=== PATIENT | male | born 1960 | race Caucasian/White ===

== ENCOUNTER 2023-02-10 20:13 | Inpatient (IN) | payer MEDICAID ==
[~2023-02-10] VITALS: Ht 185.4 cm; Wt 104.5 kg
[2023-02-10 21:41] LABS: BASOPHILS % (AUTO) 0.4 % (0-1); EOSINOPHILS # (AUTO) 0.1 X10'3 (0-0.9); EOSINOPHILS % (AUTO) 1.7 % (0-6); HEMATOCRIT 38.5 % (42.0-52.0); HEMOGLOBIN 13.3 g/dl (14.0-17.9); LYMPHOCYTES # (AUTO) 1.2 X10'3 (1.1-4.8); LYMPHOCYTES % (AUTO) 21.1 % (21-51); MEAN CORPUSCULAR HEMOGLOBIN 30.5 PG (27.0-31.0); MEAN CORPUSCULAR HGB CONC 34.7 g/dL (33.0-36.5); MEAN PLATELET VOLUME 10.7 FL (7.4-10.4); MONOCYTES # (AUTO) 0.4 X10'3 (0-0.9); MONOCYTES % (AUTO) 7.6 % (2-12); NEUTROPHILS # (AUTO) 3.9 X10'3 (1.8-7.7); NEUTROPHILS % (AUTO) 69.2 % (42-75); PLATELET COUNT 138 X10'3 (140-440); RED BLOOD COUNT 4.37 X10'6 (4.70-6.10); RED CELL DISTRIBUTION WIDTH 13.7 % (11.5-14.5); WHITE BLOOD COUNT 5.6 X10'3 (4.5-11.0)
[2023-02-10 21:48] LABS: ALANINE AMINOTRANSFERASE 121 U/L (12-78); ALBUMIN/GLOBULIN RATIO 0.7 (1.1-1.5); ALKALINE PHOSPHATASE 175 IU/L (46-116); ANION GAP 6 (8-16); ASPARTATE AMINO TRANSFERASE 70 U/L (10-37); BILIRUBIN,TOTAL 0.3 MG/DL (0.1-1.0); BLOOD UREA NITROGEN 24 MG/DL (7-18); BUN/CREATININE RATIO 21.1 (10.0-20.0); CALCIUM 9.2 MG/DL (8.5-10.1); CHLORIDE 93 MMOL/L (99-107); CREATININE 1.14 MG/DL (0.60-1.10); POTASSIUM 4.4 MMOL/L (3.5-5.1); SODIUM 129 MMOL/L (135-145); TOTAL CARBON DIOXIDE 30.3 MMOL/L (24-32); TOTAL PROTEIN 7.4 G/DL (6.4-8.2); eCRCL 75 ML/MIN; eGFR 65 ML/MIN
[2023-02-10 21:57] LABS: GLUCOSE 592 MG/DL (70-104)
[2023-02-10] MEDS ORDERED: normal saline 1000ML IV soln IVB ONE (22:30)
[2023-02-10] MEDS ORDERED: insulin regular, human 10 units/0.1 ml syringe SQ ONE (23:35)
[2023-02-10] MEDS ORDERED: vancomycin/NS 1 GM ADD-VANTAGE 250 ML IV ONE (23:35)
[2023-02-10] MEDS ORDERED: piperacillin/tazo 4.5gm/100ml 100 ML IV ONE ×2 (23:35→23:51)
[2023-02-10] MEDS ORDERED: ringers solution, lactated 1000ml IV soln IV ONE (23:35)
[2023-02-11 00:06] LABS: APTT 30 SECONDS (22-32)
[2023-02-11 00:08] LABS: C-REACTIVE PROTEIN 2.93 MG/DL (0.0-0.5)
[2023-02-11 00:26] LABS: INR 0.9 INR
[2023-02-11 02:06] LABS: BILIRUBIN,URINE NEGATIVE (Neg); CLARITY,URINE CLEAR (Clear); COLOR,URINE STRAW (Yellow); GLUCOSE, URINE >=1000 mg/dl (Neg); KETONES,URINE NEGATIVE (Neg); LEUKOCYTE ESTERASE ,URINE NEGATIVE (Neg); NITRITES, URINE NEGATIVE (Neg); OCCULT BLOOD,URINE NEGATIVE (Neg); PH,URINE 5.5 (4.8-8.0); PROTEIN,URINE NEGATIVE (Neg); UROBILINOGEN,URINE 0.2 E.U/dL (0.2-1.0)
[2023-02-11] MEDS ORDERED: bisacodyl 10mg suppository rectal RC PRN (02:15)
[2023-02-11] MEDS ORDERED: potassium Cl 20 mEq SR tablet PO PRN ×2 (02:15)
[2023-02-11] MEDS ORDERED: HYDROmorphone/PF 0.2 MG/ML SYRINGE IV PRN (02:15)
[2023-02-11] MEDS ORDERED: MESSAGE TO PHARMACY PO ONE (02:15)
[2023-02-11] MEDS ORDERED: potassium Cl 40MEQ/1/2NS 520ml 520 ML IV PRN (02:15)
[2023-02-11] MEDS ORDERED: HYDROcodone/acetaminophen 5mg/325mg tablet PO PRN (02:15)
[2023-02-11] MEDS ORDERED: albuterol 2.5 MG/3 ML nebule NEB PRN (02:15)
[2023-02-11] MEDS ORDERED: mag hydrox/Alum hydrox/simeth 30ml oral suspension PO PRN (02:15)
[2023-02-11] MEDS ORDERED: DEXTROSE 15 GM of carb/4 tabs (each vial/BOTTLE has 4 tablets) PO PRN ×2 (02:15)
[2023-02-11] MEDS ORDERED: dextrose 50%-water 50ml dispensing syringe IV PRN ×2 (02:15)
[2023-02-11] MEDS ORDERED: acetaminophen 325mg tablet PO PRN ×2 (02:15)
[2023-02-11] MEDS ORDERED: magnesium 4gm in 100ml NS 100 ML IV PRN (02:15)
[2023-02-11] MEDS ORDERED: ondansetron/PF 4mg/2ml inj IV PRN (02:15)
[2023-02-11] MEDS ORDERED: magnesium 2GM in 50ml NS 50 ML IV PRN (02:15)
[2023-02-11] MEDS ORDERED: glucagon, human recombinant 1mg kit SUBCUT PRN (02:15)
[2023-02-11 02:23] LABS: UA COLLECTION TYPE URINAL
[2023-02-11 02:25] LABS: SQUAMOUS EPITHELIAL CELL,UR NONE SEEN /LPF (FEW)
[2023-02-11 02:52] LABS: BACTERIA,URINE FEW /HPF (Neg); RBC,URINE NONE SEEN /HPF (0-2); WBC,URINE NONE SEEN /HPF (0-4)
[2023-02-11 03:44] VITALS: PULSE 78; RESP 16; O2SAT 94
[2023-02-11] MEDS: HYDROcodone/acetaminophen 10/325mg tab PO PRN ×4 (04:48→23:05)
[2023-02-11] MEDS ORDERED: GABA800T11 PO (04:49)
[2023-02-11] MEDS ORDERED: POTA8TAB69 PO (05:23)
[2023-02-11] MEDS ORDERED: INSU100I31 SQ (05:23)
[2023-02-11] MEDS ORDERED: TORS20TA41 PO (05:23)
[2023-02-11] MEDS ORDERED: SPIR25TA5 PO (05:23)
[2023-02-11] MEDS ORDERED: SACU1TAB4 PO (05:23)
[2023-02-11] MEDS ORDERED: DAPA10TA PO (05:23)
[2023-02-11] MEDS ORDERED: DULA1.5P SQ (05:23)
[2023-02-11 07:58] LABS: HEMOGLOBIN A1C > 12.0 % (4.5-6.2)
[2023-02-11] MEDS ORDERED: cefepime 2g/NS 100ml ADVANTAGE 100 ML IV SCH (08:00)
[2023-02-11] MEDS: docusate sod 100mg capsule PO SCH ×2 (08:00→19:59)
[2023-02-11] MEDS: K and/or MAG REPLACEMENT MC SCH ×2 (08:16→20:00)
[2023-02-11 10:34] VITALS: PULSE 48; RESP 16; O2SAT 98
[2023-02-11] MEDS: insulin Lispro (HumaLOG) vial - multi-dose SQ SCH ×3 (10:46→19:42)
[2023-02-11] MEDS: vancomycin/NS 1 GM ADD-VANTAGE 250 ML IV SCH (12:22)
--- NOTE | 2023-02-11 13:13 | NUR ---
MRI form faxed
--- NOTE | 2023-02-11 14:49 | NUR ---
Pt to MRI
[2023-02-11] MEDS ORDERED: GADOTERATE MEGLUMINE 7.5 MMOL/15 ML VIAL IV ONE (15:18)
[2023-02-11] MEDS: HYDROmorphone inj. 0.5 MG/0.5 ML DISP.SYRIN IV PRN ×2 (15:25→19:49)
[2023-02-11] MEDS: CefTRIAXone/D5W-Rocephin 1gm 50 ML IV SCH (16:10)
[2023-02-11] MEDS: metroNIDAZOLE-Flagyl 500mg/NS 100 ML IV SCH ×2 (16:41→23:00)
--- NOTE | 2023-02-11 16:56 | NUR ---
CALLED FOR REPORT NO NURSE ASSINGED.
--- NOTE | 2023-02-11 17:04 | NUR ---
Ortho not answering the phone
--- NOTE | 2023-02-11 17:57 | NUR ---
PATIENT JUST ARRIVED TO THE FLOOR AWAKE AND IN HOSPITAL BED
[2023-02-11 18:00] VITALS: BP 124/70; PULSE 75; RESP 16; TEMP 98.4; O2SAT 100
[2023-02-11 19:00] VITALS: RESP 16; O2SAT 100
[2023-02-11 22:00] VITALS: BP 124/70; PULSE 73; RESP 16; TEMP 97.7; O2SAT 100
[2023-02-11] MEDS: insulin glargine (Lantus) pen - multi-dose SQ SCH (23:08)
[2023-02-11 23:21] VITALS: PULSE 66; RESP 18; O2SAT 99
[2023-02-12] VITALS (8 sets, daily range): BP systolic 107–155; BP diastolic 63–87; PULSE 55–87; RESP 16–20; TEMP 98–98.6; O2SAT 94–100
[2023-02-12] MEDS ORDERED: HYDROmorphone 1 mg/ml syringe ONE (00:54)
[2023-02-12] MEDS: temazepam 15mg capsule PO PRN (00:56)
[2023-02-12] MEDS ORDERED: HYDROmorphone 1 mg/ml syringe IV PRN (01:10)
[2023-02-12] MEDS: vancomycin/NS 1 GM ADD-VANTAGE 250 ML IV SCH ×2 (01:14→13:52)
[2023-02-12] MEDS: HYDROcodone/acetaminophen 10/325mg tab PO PRN ×3 (02:43→21:44)
[2023-02-12 06:07] LABS: BASOPHILS % (AUTO) 0.5 % (0-1); EOSINOPHILS # (AUTO) 0.2 X10'3 (0-0.9); EOSINOPHILS % (AUTO) 3.8 % (0-6); HEMATOCRIT 38.4 % (42.0-52.0); HEMOGLOBIN 13.5 g/dl (14.0-17.9); LYMPHOCYTES # (AUTO) 1.6 X10'3 (1.1-4.8); LYMPHOCYTES % (AUTO) 26.7 % (21-51); MEAN CORPUSCULAR HEMOGLOBIN 30.6 PG (27.0-31.0); MEAN CORPUSCULAR HGB CONC 35.2 g/dL (33.0-36.5); MEAN CORPUSCULAR VOLUME 86.8 FL (78-98); MEAN PLATELET VOLUME 9.7 FL (7.4-10.4); MONOCYTES # (AUTO) 0.4 X10'3 (0-0.9); MONOCYTES % (AUTO) 7.3 % (2-12); NEUTROPHILS # (AUTO) 3.7 X10'3 (1.8-7.7); NEUTROPHILS % (AUTO) 61.7 % (42-75); PLATELET COUNT 127 X10'3 (140-440); RED BLOOD COUNT 4.42 X10'6 (4.70-6.10); RED CELL DISTRIBUTION WIDTH 14.1 % (11.5-14.5)
[2023-02-12 06:24] LABS: ALANINE AMINOTRANSFERASE 107 U/L (12-78); ALBUMIN 2.6 G/DL (3.4-5.0); ALBUMIN/GLOBULIN RATIO 0.7 (1.1-1.5); ALKALINE PHOSPHATASE 90 IU/L (46-116); ANION GAP 6 (8-16); ASPARTATE AMINO TRANSFERASE 71 U/L (10-37); BILIRUBIN,TOTAL 0.3 MG/DL (0.1-1.0); BLOOD UREA NITROGEN 14 MG/DL (7-18); BUN/CREATININE RATIO 16.5 (10.0-20.0); CALCIUM 9.1 MG/DL (8.5-10.1); CHLORIDE 99 MMOL/L (99-107); CREATININE 0.85 MG/DL (0.60-1.10); GLUCOSE 231 MG/DL (70-104); MAGNESIUM 1.7 MG/DL (1.5-2.4); POTASSIUM 3.9 MMOL/L (3.5-5.1); SODIUM 134 MMOL/L (135-145); TOTAL CARBON DIOXIDE 29.4 MMOL/L (24-32); TOTAL PROTEIN 6.5 G/DL (6.4-8.2); eCRCL 101 ML/MIN; eGFR > 90 ML/MIN
--- NOTE | 2023-02-12 06:51 | NUR ---
Patient in room ORTHO 4014. I have received report from Polo and had the opportunity to ask questions and assume patient care.
--- NOTE | 2023-02-12 06:54 | NUR ---
Problems reprioritized. Patient report given, questions answered & plan of care reviewed with MONTSERRAT. Addendum: 02/12/23 at 0654 by Bhavik Franco RN Amended: Links added.
[2023-02-12] MEDS: HYDROmorphone 1 mg/ml syringe IV PRN ×4 (07:00→23:58)
[2023-02-12] MEDS: K and/or MAG REPLACEMENT MC SCH ×2 (07:52→19:44)
[2023-02-12] MEDS: metroNIDAZOLE-Flagyl 500mg/NS 100 ML IV SCH ×3 (07:55→23:54)
[2023-02-12] MEDS: docusate sod 100mg capsule PO SCH ×2 (07:56→19:38)
[2023-02-12] MEDS: insulin Lispro (HumaLOG) vial - multi-dose SQ SCH ×3 (09:23→19:16)
[2023-02-12] MEDS: CefTRIAXone/D5W-Rocephin 1gm 50 ML IV SCH (10:18)
[2023-02-12] MEDS ORDERED: VANCOMYCIN LEVEL IV ONE (11:30)
--- NOTE | 2023-02-12 13:28 | NUR ---
Diabetes consult: Pt admit for right diabetic foot wound-high probability of osteomyelitis, hyponatremia, renal insufficiency, and transaminitis possibly related to alcohol per EMR. Wound care has been consulted, pending [facility] note. Pt presents with an A1c >12% and BG 592mg/dl at admit per EMR. Pt seen at bedside and provided written/verbal diabetes nutrition education. Pt reports sometimes taking his medication "when feeling like complying" and does not see his dr. often for diabetes management. Pt is currently on a carbohydrate controlled diet with average PO intake 100% x 2 meals which met 88% of his estimated kcal needs and 91% of estimated protein needs. During visit noticed pt is edentulous, states he would like soft foods and is agreeable to meat chopped up; notified dietary. RD contact information provided to pt and encouraged to reach out for any nutrition questions or concerns. LBM on 02/10 receiving bowel care per EMR. Will continue to monitor. Recommendations: 1.continue carbohydrate controlled diet 2.Add soft to chew foods and chopped up meats due to pt being edentulous 3.monitor PO intake and need to add double protein 4.routine bowel care 5.weekly scaled wts Addendum: 02/12/23 at [address] Amended: Links added.
--- NOTE | 2023-02-12 14:52 | NUR ---
Received order for consult. Met with patient in regards to substance use and to see if patient was interested in resources for treatment options. Patient would like outpatient resources. I gave patient a list of resources, a card for [facility] and my card to call me with any questions.
--- NOTE | 2023-02-12 15:22 | NUR ---
DIABETIC FOOT CARE EDUCATION PROVIDED BY [facility] * Wash your feet daily with lukewarm water and soap. * Dry your feet well, especially between the toes. * Keep the skin moisturized with lotion, but do not apply it between the toes. * Check your feet for blisters, cuts or sores. * Use an emery board to shape your toenails even with the ends of your toes. * Change daily into clean, soft socks or stockings, not too big or too small. * Keep your feet warm and dry. * Preferably wear special padded socks and shoes that fit well. * Never walk barefoot indoors or outdoors. * Examine your shoes everyday for cracks, margie, nails or anything that could hurt your feet. * Tell your doctor if you find any of these problems or have any concerns after examining your feet. Addendum: 02/12/23 at 1522 by Carmen Gomez LVN Amended: Links added.
--- NOTE | 2023-02-12 18:23 | NUR ---
Problems reprioritized. Patient report given, questions answered & plan of care reviewed with Monica.
--- NOTE | 2023-02-12 18:30 | NUR ---
Patient in room ORTHO 4014. I have received report from MARIAM HUERTA and had the opportunity to ask questions and assume patient care.
[2023-02-12] MEDS: ipratropium/albuterol 3ml nebule NEB PRN (19:50)
[2023-02-12] MEDS: insulin glargine (Lantus) pen - multi-dose SQ SCH (21:40)
[2023-02-13] MEDS: vancomycin/NS 1 GM ADD-VANTAGE 250 ML IV SCH (00:47)
[2023-02-13 06:00] VITALS: BP 149/84; PULSE 73; RESP 18; TEMP 98.9; O2SAT 98
--- NOTE | 2023-02-13 06:26 | NUR ---
Problems reprioritized. Patient report given, questions answered & plan of care reviewed with MARY BETH HUERTA.
--- NOTE | 2023-02-13 06:28 | NUR ---
Patient in room ORTHO 4014. I have received report from BRADLEY Osborn and had the opportunity to ask questions and assume patient care.
[2023-02-13 07:06] LABS: BASOPHILS % (AUTO) 0.4 % (0-1); EOSINOPHILS # (AUTO) 0.2 X10'3 (0-0.9); EOSINOPHILS % (AUTO) 3.2 % (0-6); HEMOGLOBIN 14.5 g/dl (14.0-17.9); LYMPHOCYTES # (AUTO) 1.8 X10'3 (1.1-4.8); LYMPHOCYTES % (AUTO) 28.4 % (21-51); MEAN CORPUSCULAR HEMOGLOBIN 30.3 PG (27.0-31.0); MEAN CORPUSCULAR HGB CONC 34.6 g/dL (33.0-36.5); MEAN CORPUSCULAR VOLUME 87.5 FL (78-98); MEAN PLATELET VOLUME 9.4 FL (7.4-10.4); MONOCYTES # (AUTO) 0.5 X10'3 (0-0.9); MONOCYTES % (AUTO) 7.8 % (2-12); NEUTROPHILS # (AUTO) 3.9 X10'3 (1.8-7.7); NEUTROPHILS % (AUTO) 60.2 % (42-75); PLATELET COUNT 159 X10'3 (140-440); RED BLOOD COUNT 4.79 X10'6 (4.70-6.10); RED CELL DISTRIBUTION WIDTH 13.8 % (11.5-14.5); WHITE BLOOD COUNT 6.4 X10'3 (4.5-11.0)
[2023-02-13] MEDS: HYDROmorphone 1 mg/ml syringe IV PRN ×4 (07:14→20:53)
[2023-02-13 07:17] LABS: ALANINE AMINOTRANSFERASE 109 U/L (12-78); ALBUMIN 2.9 G/DL (3.4-5.0); ALBUMIN/GLOBULIN RATIO 0.7 (1.1-1.5); ALKALINE PHOSPHATASE 103 IU/L (46-116); ANION GAP 8 (8-16); ASPARTATE AMINO TRANSFERASE 71 U/L (10-37); BILIRUBIN,TOTAL 0.3 MG/DL (0.1-1.0); BLOOD UREA NITROGEN 13 MG/DL (7-18); BUN/CREATININE RATIO 14.6 (10.0-20.0); CALCIUM 9.5 MG/DL (8.5-10.1); CHLORIDE 99 MMOL/L (99-107); CREATININE 0.89 MG/DL (0.60-1.10); GLUCOSE 238 MG/DL (70-104); MAGNESIUM 1.7 MG/DL (1.5-2.4); POTASSIUM 4.1 MMOL/L (3.5-5.1); SODIUM 133 MMOL/L (135-145); TOTAL CARBON DIOXIDE 25.9 MMOL/L (24-32); TOTAL PROTEIN 7.3 G/DL (6.4-8.2); eCRCL 96 ML/MIN; eGFR 86 ML/MIN
[2023-02-13] MEDS: docusate sod 100mg capsule PO SCH ×2 (07:19→20:00)
[2023-02-13] MEDS: metroNIDAZOLE-Flagyl 500mg/NS 100 ML IV SCH ×2 (07:22→16:08)
[2023-02-13] MEDS: K and/or MAG REPLACEMENT MC SCH ×2 (08:00→20:00)
[2023-02-13] MEDS: HYDROcodone/acetaminophen 10/325mg tab PO PRN ×2 (09:26→14:09)
[2023-02-13] MEDS: CefTRIAXone/D5W-Rocephin 1gm 50 ML IV SCH (09:26)
[2023-02-13 10:00] VITALS: BP 156/78; PULSE 73; RESP 16; TEMP 98.9; O2SAT 98
[2023-02-13] MEDS: insulin Lispro (HumaLOG) vial - multi-dose SQ SCH ×3 (10:00→18:49)
[2023-02-13] MEDS: VANCOMYCIN 1,500MG in NS 300ml IVPB IV SCH ×2 (11:32→22:17)
--- NOTE | 2023-02-13 15:41 | NUR ---
F/u 02/13: Per [facility] note, pt w/ R 2nd toe DM foot ulcer no depth. Will monitor for nutrition intervention needs this admit. Addendum: 02/13/23 at [address] Amended: Links added.
[2023-02-13] MEDS ORDERED: iohexol 350 MG/ML 50ML vial IV ONE (16:19)
[2023-02-13] MEDS ORDERED: iohexol 350MG/ML 100ml bottle IV ONE (16:20)
[2023-02-13 16:59] VITALS: PULSE 73; RESP 18; O2SAT 96
[2023-02-13 18:00] VITALS: BP 126/69; PULSE 74; RESP 20; TEMP 98; O2SAT 97
--- NOTE | 2023-02-13 18:00 | NUR ---
Patient in room ORTHO 4014. I have received report from BRADLEY Byrne and had the opportunity to ask questions and assume patient care.
--- NOTE | 2023-02-13 19:09 | NUR ---
Problems reprioritized. Patient report given, questions answered & plan of care reviewed with BRADLEY Arambula.
[2023-02-13 19:32] VITALS: PULSE 78; RESP 16; O2SAT 98
[2023-02-13] MEDS: insulin glargine (Lantus) pen - multi-dose SQ SCH (20:47)
[2023-02-13 22:00] VITALS: BP 155/96; PULSE 70; RESP 16; TEMP 97.9; O2SAT 100
[2023-02-14] VITALS (21 sets, daily range): BP systolic 103–167; BP diastolic 63–103; PULSE 69–89; RESP 8–21; TEMP 98–98.4; O2SAT 94–100
[2023-02-14] MEDS: metroNIDAZOLE-Flagyl 500mg/NS 100 ML IV SCH ×2 (00:19→07:08)
[2023-02-14] MEDS: HYDROmorphone 1 mg/ml syringe IV PRN ×3 (02:11→12:16)
--- NOTE | 2023-02-14 06:20 | NUR ---
Problems reprioritized. Patient report given, questions answered & plan of care reviewed with BRADLEY Byrne.
--- NOTE | 2023-02-14 06:37 | NUR ---
Patient in room ORTHO 4014. I have received report from BRADLEY Arambula and had the opportunity to ask questions and assume patient care.
[2023-02-14 06:57] LABS: BASOPHILS # (AUTO) 0.1 X10'3 (0-0.2); BASOPHILS % (AUTO) 0.8 % (0-1); EOSINOPHILS # (AUTO) 0.2 X10'3 (0-0.9); EOSINOPHILS % (AUTO) 2.4 % (0-6); HEMATOCRIT 42.5 % (42.0-52.0); HEMOGLOBIN 14.8 g/dl (14.0-17.9); LYMPHOCYTES # (AUTO) 1.8 X10'3 (1.1-4.8); LYMPHOCYTES % (AUTO) 26.4 % (21-51); MEAN CORPUSCULAR HEMOGLOBIN 30.3 PG (27.0-31.0); MEAN CORPUSCULAR HGB CONC 34.7 g/dL (33.0-36.5); MEAN CORPUSCULAR VOLUME 87.1 FL (78-98); MONOCYTES # (AUTO) 0.4 X10'3 (0-0.9); MONOCYTES % (AUTO) 5.8 % (2-12); NEUTROPHILS # (AUTO) 4.3 X10'3 (1.8-7.7); NEUTROPHILS % (AUTO) 64.6 % (42-75); PLATELET COUNT 164 X10'3 (140-440); RED BLOOD COUNT 4.88 X10'6 (4.70-6.10); WHITE BLOOD COUNT 6.7 X10'3 (4.5-11.0)
[2023-02-14] MEDS: docusate sod 100mg capsule PO SCH ×2 (07:06→19:31)
[2023-02-14 07:48] LABS: ALANINE AMINOTRANSFERASE 128 U/L (12-78); ALBUMIN 2.9 G/DL (3.4-5.0); ALBUMIN/GLOBULIN RATIO 0.6 (1.1-1.5); ALKALINE PHOSPHATASE 93 IU/L (46-116); ANION GAP 9 (8-16); ASPARTATE AMINO TRANSFERASE 95 U/L (10-37); BILIRUBIN,TOTAL 0.4 MG/DL (0.1-1.0); BLOOD UREA NITROGEN 14 MG/DL (7-18); BUN/CREATININE RATIO 19.7 (10.0-20.0); CALCIUM 9.7 MG/DL (8.5-10.1); CHLORIDE 100 MMOL/L (99-107); CREATININE 0.71 MG/DL (0.60-1.10); GLUCOSE 149 MG/DL (70-104); MAGNESIUM 1.7 MG/DL (1.5-2.4); POTASSIUM 4.2 MMOL/L (3.5-5.1); SODIUM 134 MMOL/L (135-145); TOTAL CARBON DIOXIDE 24.7 MMOL/L (24-32); TOTAL PROTEIN 7.4 G/DL (6.4-8.2); eCRCL 120 ML/MIN; eGFR > 90 ML/MIN
[2023-02-14] MEDS: CefTRIAXone/D5W-Rocephin 1gm 50 ML IV SCH (09:22)
[2023-02-14] MEDS: HYDROcodone/acetaminophen 10/325mg tab PO PRN ×3 (09:22→19:36)
[2023-02-14] MEDS ORDERED: potassium chloride 8mEq ER tablet PO ONE (09:32)
[2023-02-14] MEDS ORDERED: spironolactone 25 MG tablet PO ONE (09:32)
--- NOTE | 2023-02-14 12:25 | NUR ---
WOC NOTE: Patient is having surgery today per primary nurse. WOC will see pt later in the week to evaluate surgical site.
[2023-02-14] MEDS: VANCOMYCIN 1,500MG in NS 300ml IVPB IV SCH ×2 (12:27→12:47)
[2023-02-14] MEDS: gabapentin 400mg capsule PO SCH ×2 (12:28→21:24)
[2023-02-14] MEDS ORDERED: morphine 4 MG/ML inj SYRINge IV PRN (13:50)
[2023-02-14] MEDS ORDERED: enalaprilat dihydrate 2.5mg/2ml vial IV PRN (13:50)
[2023-02-14] MEDS ORDERED: ondansetron/PF 4mg/2ml inj IV PRN (13:50)
[2023-02-14] MEDS ORDERED: morphine 2 MG/ML inj. syringe IV PRN (13:50)
[2023-02-14] MEDS ORDERED: fentaNYL/PF 50MCG/1 ML 2ML syringe IV PRN ×2 (13:50)
[2023-02-14] MEDS ORDERED: ringers solution, lacted 1,000 ML IV SCH (13:50)
[2023-02-14] MEDS ORDERED: BUPIVAcaine/PF 2.5 mg/ml (0.25%) 30ml vial ONE (14:56)
[2023-02-14] MEDS ORDERED: fentaNYL/PF 50MCG/1 ML 2ML syringe ONE (16:18)
[2023-02-14] MEDS ORDERED: desflurane 240ml liquid inh. IH ONE (16:18)
[2023-02-14] MEDS ORDERED: propofol inj 20 ML IV ONE (16:19)
[2023-02-14] MEDS ORDERED: midazolam 1 mg/ML 2ml injection ONE (16:19)
[2023-02-14] MEDS ORDERED: ondansetron/PF 4mg/2ml inj ONE (16:19)
[2023-02-14] MEDS ORDERED: LIDOcaine 2% (20mg/ml) 5ml vial ONE (16:19)
[2023-02-14] MEDS ORDERED: vancomycin 1,000mg inj ONE (16:39)
--- NOTE | 2023-02-14 16:54 | NUR ---
Received from OR via HOSPITAL BED TO RR 7, accompanied by Anesthesiologist DR REHMAN and report given by Anesthesiolgist. PT PRESENT WITH ORAL AIRWAY ON 8L VIA MASK, SPO2 AT 100%. NO S/S OF DISTRESS NOTED, VSS. RIGHT FOOT DRESSING CDI AND BED ELEVATED TO HELP REDUCE SWELLING IN RLE. SCD APPLIED TO LEFT LEG. WILL CONTINUE TO ASSESS.
--- NOTE | 2023-02-14 18:15 | NUR ---
Problems reprioritized. Patient report given, questions answered & plan of care reviewed with BRADLEY Callaway.
--- NOTE | 2023-02-14 18:25 | NUR ---
Patient in room ORTHO 4014. I have received report from BRADLEY Byrne and had the opportunity to ask questions and assume patient care.
--- NOTE | 2023-02-14 18:25 | NUR ---
Patient in room ORTHO 4014. I have received report from BRADLEY Byrne and had the opportunity to ask questions and assume patient care.
[2023-02-14] MEDS: hydrALAZINE 20mg/ml inj. IV PRN ×2 (18:42→19:01)
--- NOTE | 2023-02-14 18:50 | NUR ---
Patient in room ORTHO 4014. I have received report from BRADLEY Long and had the opportunity to ask questions and assume patient care.
--- NOTE | 2023-02-14 19:20 | NUR ---
pt arrived to the floor in hospital bed. settled in. call light in reach.
--- NOTE | 2023-02-14 19:24 | NUR ---
PATIENT STABLE FOR TRANSFER PER MD ORDERS. REPORT CALLED TO MARIANGEL GONZALEZ NURSE, ALL QUESTIONS, COMMENTS AND CONCERNS WERE ANSWERED AT THIS TIME. RIGHT FOOT DRESSING CDI. PATIENT HOOKED UP TO POST OP VS, CALL LIGHT IN HAND, BLL. PRIMARY NURSE AWARE OF PATIENT IN ROOM.
[2023-02-14] MEDS: metroNIDAZOLE 500mg tablet PO SCH ×2 (19:31→23:58)
[2023-02-14] MEDS: K and/or MAG REPLACEMENT MC SCH (20:00)
[2023-02-14] MEDS ORDERED: Sacubitril/Valsartan (Entresto 97 mg-103 mg Tablet) PO SCH (20:00)
[2023-02-14] MEDS: insulin Lispro (HumaLOG) vial - multi-dose SQ SCH (21:40)
[2023-02-14] MEDS: insulin glargine (Lantus) pen - multi-dose SQ SCH (21:42)
[2023-02-14] MEDS ORDERED: VANCOMYCIN LEVEL IV ONE (22:30)
[2023-02-15] VITALS (9 sets, daily range): BP systolic 114–138; BP diastolic 63–80; PULSE 81–90; RESP 14–18; TEMP 97.4–98.4; O2SAT 94–98
--- NOTE | 2023-02-15 06:15 | NUR ---
Problems reprioritized. Patient report given, questions answered & plan of care reviewed with BRADLEY Byrne.
[2023-02-15 06:21] LABS: MEAN PLATELET VOLUME 8.9 FL (7.4-10.4)
[2023-02-15 06:24] LABS: BASOPHILS # (AUTO) 0.1 X10'3 (0-0.2); BASOPHILS % (AUTO) 1.1 % (0-1); EOSINOPHILS # (AUTO) 0.2 X10'3 (0-0.9); EOSINOPHILS % (AUTO) 2.8 % (0-6); LYMPHOCYTES # (AUTO) 1.4 X10'3 (1.1-4.8); LYMPHOCYTES % (AUTO) 19.3 % (21-51); MEAN CORPUSCULAR HEMOGLOBIN 30.8 PG (27.0-31.0); MEAN CORPUSCULAR VOLUME 87.9 FL (78-98); MONOCYTES # (AUTO) 0.5 X10'3 (0-0.9); MONOCYTES % (AUTO) 7.1 % (2-12); NEUTROPHILS # (AUTO) 5.1 X10'3 (1.8-7.7); NEUTROPHILS % (AUTO) 69.7 % (42-75); PLATELET COUNT 155 X10'3 (140-440); RED BLOOD COUNT 4.55 X10'6 (4.70-6.10); RED CELL DISTRIBUTION WIDTH 13.7 % (11.5-14.5); WHITE BLOOD COUNT 7.3 X10'3 (4.5-11.0)
--- NOTE | 2023-02-15 06:27 | NUR ---
Patient in room ORTHO 4014. I have received report from Tracy and had the opportunity to ask questions and assume patient care.
[2023-02-15 06:38] LABS: ALANINE AMINOTRANSFERASE 109 U/L (12-78); ALBUMIN 2.7 G/DL (3.4-5.0); ALBUMIN/GLOBULIN RATIO 0.7 (1.1-1.5); ALKALINE PHOSPHATASE 90 IU/L (46-116); ANION GAP 7 (8-16); ASPARTATE AMINO TRANSFERASE 71 U/L (10-37); BILIRUBIN,TOTAL 0.3 MG/DL (0.1-1.0); BLOOD UREA NITROGEN 20 MG/DL (7-18); BUN/CREATININE RATIO 21.5 (10.0-20.0); CALCIUM 9.4 MG/DL (8.5-10.1); CHLORIDE 101 MMOL/L (99-107); CREATININE 0.93 MG/DL (0.60-1.10); GLUCOSE 250 MG/DL (70-104); MAGNESIUM 1.8 MG/DL (1.5-2.4); POTASSIUM 4.6 MMOL/L (3.5-5.1); SODIUM 135 MMOL/L (135-145); TOTAL CARBON DIOXIDE 27.4 MMOL/L (24-32); TOTAL PROTEIN 6.8 G/DL (6.4-8.2); eCRCL 92 ML/MIN; eGFR 82 ML/MIN
[2023-02-15] MEDS: HYDROmorphone 1 mg/ml syringe IV PRN ×4 (07:26→19:55)
[2023-02-15] MEDS: potassium chloride 8mEq ER tablet PO SCH (07:30)
[2023-02-15] MEDS: gabapentin 400mg capsule PO SCH ×3 (07:31→20:55)
[2023-02-15] MEDS: docusate sod 100mg capsule PO SCH ×2 (07:31→20:00)
[2023-02-15] MEDS: spironolactone 25 MG tablet PO SCH (07:38)
[2023-02-15] MEDS: metroNIDAZOLE 500mg tablet PO SCH ×2 (07:42→19:00)
[2023-02-15] MEDS: CefTRIAXone/D5W-Rocephin 1gm 50 ML IV SCH (07:43)
[2023-02-15] MEDS: K and/or MAG REPLACEMENT MC SCH (08:00)
[2023-02-15] MEDS: sacubitril/valsartan 49mg-51mg tablet PO SCH (08:00)
[2023-02-15] MEDS: ipratropium/albuterol 3ml nebule NEB PRN ×2 (10:29→14:30)
[2023-02-15] MEDS ORDERED: VANCOMYCIN LEVEL IV ONE (10:30)
[2023-02-15] MEDS: insulin Lispro (HumaLOG) vial - multi-dose SQ SCH ×2 (10:53→14:11)
[2023-02-15] MEDS: VANCOMYCIN 1,500MG in NS 300ml IVPB IV SCH (12:20)
[2023-02-15] MEDS ORDERED: oxyCODONE IR 5mg (immed. release) tablet PO PRN ×2 (13:55)
[2023-02-15] MEDS: HYDROcodone/acetaminophen 10/325mg tab PO PRN ×2 (14:12→19:00)
[2023-02-15] MEDS: insulin glargine (Lantus) pen - multi-dose SQ SCH (20:55)
--- NOTE | 2023-02-15 23:58 | NUR ---
Patient in room ORTHO 4014. I have received report from BRADLEY Byrne and had the opportunity to ask questions and assume patient care.
[2023-02-16] VITALS (8 sets, daily range): BP systolic 132–157; BP diastolic 65–81; PULSE 67–98; RESP 14–19; TEMP 97.8–98.3; O2SAT 94–98
--- NOTE | 2023-02-16 | NUR ---
Problems reprioritized. Patient report given, questions answered & plan of care reviewed with BRADLEY Lion.
--- NOTE | 2023-02-16 | NUR ---
Problems reprioritized. Patient report given, questions answered & plan of care reviewed with BRADLEY Lion.
[2023-02-16] MEDS: VANCOMYCIN 1,500MG in NS 300ml IVPB IV SCH ×3 (00:02→22:42)
[2023-02-16] MEDS: K and/or MAG REPLACEMENT MC SCH ×3 (00:03→20:00)
[2023-02-16] MEDS: metroNIDAZOLE 500mg tablet PO SCH ×2 (00:22→07:41)
[2023-02-16] MEDS: HYDROmorphone 1 mg/ml syringe IV PRN ×4 (00:23→12:28)
--- NOTE | 2023-02-16 06:41 | NUR ---
Problems reprioritized. Patient report given, questions answered & plan of care reviewed with ESTEFANY Piper.
[2023-02-16 07:18] LABS: BASOPHILS % (AUTO) 0.4 % (0-1); EOSINOPHILS # (AUTO) 0.2 X10'3 (0-0.9); EOSINOPHILS % (AUTO) 2.4 % (0-6); HEMATOCRIT 39.5 % (42.0-52.0); HEMOGLOBIN 13.6 g/dl (14.0-17.9); LYMPHOCYTES # (AUTO) 1.8 X10'3 (1.1-4.8); LYMPHOCYTES % (AUTO) 20.3 % (21-51); MEAN CORPUSCULAR HEMOGLOBIN 30.3 PG (27.0-31.0); MEAN CORPUSCULAR HGB CONC 34.5 g/dL (33.0-36.5); MEAN PLATELET VOLUME 8.8 FL (7.4-10.4); MONOCYTES # (AUTO) 0.9 X10'3 (0-0.9); MONOCYTES % (AUTO) 9.9 % (2-12); NEUTROPHILS # (AUTO) 5.8 X10'3 (1.8-7.7); PLATELET COUNT 157 X10'3 (140-440); RED CELL DISTRIBUTION WIDTH 14.1 % (11.5-14.5); WHITE BLOOD COUNT 8.7 X10'3 (4.5-11.0)
[2023-02-16] MEDS: sacubitril/valsartan 49mg-51mg tablet PO SCH ×3 (07:37→20:47)
[2023-02-16] MEDS: HYDROcodone/acetaminophen 10/325mg tab PO PRN (07:37)
[2023-02-16] MEDS: potassium chloride 8mEq ER tablet PO SCH (07:41)
[2023-02-16] MEDS: docusate sod 100mg capsule PO SCH ×2 (07:41→19:25)
[2023-02-16] MEDS: gabapentin 400mg capsule PO SCH ×3 (07:41→20:47)
[2023-02-16] MEDS: spironolactone 25 MG tablet PO SCH (07:41)
[2023-02-16 07:49] LABS: ALANINE AMINOTRANSFERASE 109 U/L (12-78); ALBUMIN 2.9 G/DL (3.4-5.0); ALBUMIN/GLOBULIN RATIO 0.7 (1.1-1.5); ALKALINE PHOSPHATASE 91 IU/L (46-116); ANION GAP 6 (8-16); ASPARTATE AMINO TRANSFERASE 64 U/L (10-37); BILIRUBIN,TOTAL 0.5 MG/DL (0.1-1.0); BLOOD UREA NITROGEN 17 MG/DL (7-18); BUN/CREATININE RATIO 17.3 (10.0-20.0); CALCIUM 9.3 MG/DL (8.5-10.1); CHLORIDE 101 MMOL/L (99-107); CREATININE 0.98 MG/DL (0.60-1.10); GLUCOSE 211 MG/DL (70-104); POTASSIUM 4.5 MMOL/L (3.5-5.1); SODIUM 136 MMOL/L (135-145); TOTAL PROTEIN 7.3 G/DL (6.4-8.2); eCRCL 87 ML/MIN; eGFR 77 ML/MIN
[2023-02-16] MEDS: CefTRIAXone/D5W-Rocephin 1gm 50 ML IV SCH (08:30)
[2023-02-16] MEDS: insulin Lispro (HumaLOG) vial - multi-dose SQ SCH ×3 (08:52→19:25)
--- NOTE | 2023-02-16 09:54 | NUR ---
Reassessment: Per EMR pt POD #2 s/p amputation of right second toe. Pt temporarily NPO for OR however back to a CHO controlled diet and pt continues eating 100% PO intake of meals. Recommend double protein TID to assist with satiety and meeting estimated nutrient needs, d/w dietary. LBM 02/11 per EMR though no documented GI symptoms. Pt receiving routine Colace BID and has PRN bowel care available though no documented to be given. D/w dietary to send power pudding with next meal to assist with a BM but pt would likely benefit from additional bowel care. Will continue to follow and monitor need for further nutrition intervention. Recommendations: 1. Continue carbohydrate controlled diet, soft to chew food with chopped meat d/t pt being edentulous 2. Double eggs WB, double meat BIDLD 3. Routine bowel care; utilize PRN bowel care; monitor need for additional, no BM x 5 days per EMR 4. Weekly scaled weights Addendum: 02/16/23 at [address] Amended: Links added.
[2023-02-16] MEDS: cefepime 2g/NS 100ml ADVANTAGE 100 ML IV SCH ×2 (12:28→19:25)
[2023-02-16] MEDS: ipratropium/albuterol 3ml nebule NEB PRN (14:14)
[2023-02-16] MEDS ORDERED: morphine IR (immed. release) 30mg tablet PO PRN (15:10)
--- NOTE | 2023-02-16 15:21 | NUR ---
[employer] documentation: I have reviewed and agree with all interventions, assessments performed and documented by Veronique Murray LVN.
[2023-02-16] MEDS: morphine 2 MG/ML inj. syringe IV PRN ×2 (17:02→20:48)
--- NOTE | 2023-02-16 18:44 | NUR ---
Patient in room ORTHO 4014. I have received report from SE ALLISON and had the opportunity to ask questions and assume patient care.
[2023-02-16] MEDS: insulin glargine (Lantus) pen - multi-dose SQ SCH (21:21)
[2023-02-16] MEDS ORDERED: VANCOMYCIN LEVEL IV ONE (22:30)
[2023-02-16] MEDS: temazepam 15mg capsule PO PRN (22:33)
[2023-02-17] MEDS: morphine 2 MG/ML inj. syringe IV PRN ×2 (06:04→10:07)
--- NOTE | 2023-02-17 06:41 | NUR ---
Problems reprioritized. Patient report given, questions answered & plan of care reviewed with STALIN HUERTA.
[2023-02-17 08:00] VITALS: RESP 16; O2SAT 97
[2023-02-17] MEDS: K and/or MAG REPLACEMENT MC SCH (08:00)
[2023-02-17 08:04] VITALS: BP_SYST 149
[2023-02-17] MEDS: spironolactone 25 MG tablet PO SCH (08:04)
[2023-02-17] MEDS: potassium chloride 8mEq ER tablet PO SCH (08:04)
[2023-02-17] MEDS: docusate sod 100mg capsule PO SCH (08:04)
[2023-02-17] MEDS: sacubitril/valsartan 49mg-51mg tablet PO SCH (08:04)
[2023-02-17] MEDS: gabapentin 400mg capsule PO SCH ×2 (08:04→12:54)
[2023-02-17] MEDS: cefepime 2g/NS 100ml ADVANTAGE 100 ML IV SCH (08:04)
[2023-02-17] MEDS: insulin Lispro (HumaLOG) vial - multi-dose SQ SCH ×2 (08:20→14:23)
[2023-02-17 09:55] VITALS: PULSE 78; RESP 20; O2SAT 97
[2023-02-17] MEDS ORDERED: vancomycin 1,750 MG in NS 350ml IV soln IV SCH (11:00)
[2023-02-17] MEDS ORDERED: ALBU18HF2 IH (11:20)
[2023-02-17] MEDS ORDERED: MORP15TA60 PO (11:20)
[2023-02-17] MEDS ORDERED: HYDR-3964 PO (11:20)
[2023-02-17] MEDS ORDERED: FLUT1BLS4 INH (11:20)
[2023-02-17] MEDS ORDERED: SULF1TAB49 PO (11:21)
[2023-02-18] MEDS ORDERED: VANCOMYCIN LEVEL IV ONE (22:30)
== END 2023-02-17 14:50 | disposition home health service (06) | DRG 314 ==
LOC: ER 20:19 → ED HOLD 02-11 02:20 → ORTHO 4S 02-11 17:55
PROVIDERS: ADMIT Family Medicine; ATTEND Internal Medicine
PROC: B4201ZZ Computerized Tomography (CT Scan) of Abdominal Aorta using Low Osmolar Contrast (ICD-10-PCS; 2023-02-13)
PROC: B42C1ZZ Computerized Tomography (CT Scan) of Pelvic Arteries using Low Osmolar Contrast (ICD-10-PCS; 2023-02-13)
PROC: B42H1ZZ Computerized Tomography (CT Scan) of Bilateral Lower Extremity Arteries using Low Osmolar Contrast (ICD-10-PCS; 2023-02-13)
PROC: 0Y6T0Z0 Detachment at Right 3rd Toe, Complete, Open Approach (ICD-10-PCS; 2023-02-14)
PROC: 0Y6R0Z0 Detachment at Right 2nd Toe, Complete, Open Approach (ICD-10-PCS; principal; 2023-02-14 16:18)
DX: E11.69 Type 2 diabetes mellitus with other specified complication (principal); M86.8X7 Other osteomyelitis, ankle and foot; L03.115 Cellulitis of right lower limb; E11.40 Type 2 diabetes mellitus with diabetic neuropathy, unspecified; E11.51 Type 2 diabetes mellitus with diabetic peripheral angiopathy without gangrene; E87.1 Hypo-osmolality and hyponatremia; L97.519 Non-pressure chronic ulcer of other part of right foot with unspecified severity; E11.621 Type 2 diabetes mellitus with foot ulcer; L02.611 Cutaneous abscess of right foot; L03.031 Cellulitis of right toe; I50.9 Heart failure, unspecified; K42.9 Umbilical hernia without obstruction or gangrene; G89.29 Other chronic pain; E11.65 Type 2 diabetes mellitus with hyperglycemia; J44.9 Chronic obstructive pulmonary disease, unspecified; I11.0 Hypertensive heart disease with heart failure; E78.5 Hyperlipidemia, unspecified; E66.01 Morbid (severe) obesity due to excess calories; F15.10 Other stimulant abuse, uncomplicated; F17.210 Nicotine dependence, cigarettes, uncomplicated; N28.9 Disorder of kidney and ureter, unspecified; K76.0 Fatty (change of) liver, not elsewhere classified; Z91.199 Patient's noncompliance with other medical treatment and regimen due to unspecified reason; Z68.30 Body mass index [BMI] 30.0-30.9, adult; Z71.6 Tobacco abuse counseling
CPT/HCPCS: 36415; 71045; 73630; 73706; 73720; 80053; 80202; 81001; 82948; 83036; 83605; 83735; 84145; 84484; 85025; 85610; 85651; 85730; 86140; 87040; 87070; 87075; 87077; 87102; 87186; 93005; 93922; 94640; 94760; 97116; 97161; 97530; 97535; 99285; A4618; A6196; A6250; A6446; A6449; A7000; A9575; G0378; J0360; J0692; J0696; J1170; J1815; J2250; J2270; J2405; J2543; J2704; J3010; J3370; J3490; J7030; J7040; J7120; Q9967